=== PATIENT | female | born 1970 | race Caucasian/White ===

== ENCOUNTER 2019-10-23 07:42 | Outpatient (CLI) | payer OTHER ==
[~2019-10-23 07:42] MED LIST: ACIDOPHILUS1 EAC3 PO; DICY20TA; LASIX40 MG PO; LEVSIN/SL0.125 MG PO; LOSARTAN-HCTZ1 EAC1; PREVACID15 MG; PROTONIX20 MG; SYNTHROID100 MCG; TENORMIN50 M1 PO
== END 2019-10-23 08:03 | disposition home or self-care (01) ==
LOC: NUCLEAR 07:42
DX: I11.9 Hypertensive heart disease without heart failure (principal); R07.89 Other chest pain
CPT/HCPCS: 93306; 78452; 93017; A9500

== ENCOUNTER 2023-06-28 05:52 | Day surgery (SDC) | payer OTHER ==
[~2023-06-28] VITALS: Ht 160 cm; Wt 119.3 kg
[~2023-06-28 05:52] MED LIST changes: +LOSARTAN-HCTZ1 EAC1 PO; +TOPROL XL100 M1 PO
[2023-06-28] MEDS ORDERED: OXYC1TAB9 PO ×2 (11:39)
== END 2023-06-28 19:59 | disposition home or self-care (01) ==
LOC: CIR.AMB 05:52
PROVIDERS: ATTEND Surgery
DX: K64.2 Third degree hemorrhoids (principal); K62.5 Hemorrhage of anus and rectum; K64.8 Other hemorrhoids; I10 Essential (primary) hypertension; Z20.822 Contact with and (suspected) exposure to COVID-19

== ENCOUNTER 2023-07-06 18:20 | Emergency (ER) | payer OTHER ==
[~2023-07-06] VITALS: Ht 160 cm; Wt 119.3 kg
[~2023-07-06 18:20] MED LIST changes: +OXYC1TAB9 PO
== END 2023-07-06 22:04 | disposition home or self-care (01) ==
LOC: ER 18:20
PROVIDERS: General Practice
DX: L76.82 Other postprocedural complications of skin and subcutaneous tissue (principal)

== ENCOUNTER 2023-09-15 16:18 | Emergency (ER) | payer OTHER ==
[~2023-09-15] VITALS: Ht 165.1 cm; Wt 99.8 kg
[2023-09-15 18:18] LABS: HEMATOCRIT 45.7 % (36.0-45.00); MEAN CELL VOLUME 85.4 fL (80.00-100.00); MEAN CORPUSCULAR HEMOGLOBIN 27.9 pg (27.00-32.0); MEAN CORPUSCULAR HGB CONC 32.7 g/dl (32.0-36.0); PLATELET COUNT 237 K/uL (150-450); RED BLOOD COUNT 5.36 M/uL (4.00-6.00); RED CELL DISTRIBUTION WIDTH 14.8 % (11.5-14.5)
[2023-09-15 18:39] LABS: ALBUMIN 3.6 gm/dL (3.4-5.0); BILIRUBIN TOTAL 0.77 mg/dL (0.3-1.2); CALCIUM 9.5 mg/dL (8.5-10.1); CREATININE SERUM 1.48 mg/dL (0.55-1.02); GFR 36.61; GLOBULINA 3.9 G/DL (2.4-3.5); POTASSIUM 3.74 mEq/L (3.5-5.1); TOTAL PROTEIN 7.5 gm/dL (6.4-8.2)
[2023-09-15 20:49] LABS: PH,URINE 5.5 (5.0-8.0); URINE APPEARANCE Clear; URINE BILIRRUBIN Negative (NEGATIVE); URINE BLOOD Small; URINE COLOR Yellow; URINE GLUCOSE Negative (NEGATIVE); URINE LEUKOCYTE Negative; URINE NITRATE Negative; URINE PROTEIN Trace (NEGATIVE); URINE UROBILINOGEN 0.2 E.U./dl
[2023-09-15 20:53] LABS: URINE BACTERIA 1833.2 uL (0.0-1933); URINE EPITHELIAL CELLS 31.2 uL (0.0-38.8); URINE RBC 44.5 uL (0.0-20.8); URINE WBC 11.5 uL (0.0-23.2)
== END 2023-09-16 01:39 | disposition home or self-care (01) ==
LOC: ER 16:18
PROVIDERS: Emergency Medicine
DX: N23 Unspecified renal colic (principal); Z91.041 Radiographic dye allergy status; J45.909 Unspecified asthma, uncomplicated; I10 Essential (primary) hypertension; E03.9 Hypothyroidism, unspecified; N20.0 Calculus of kidney; N13.39 Other hydronephrosis